=== PATIENT | female | born 1980 | race Hispanic/Latino ===

== ENCOUNTER 2024-04-17 17:19 | Day surgery (SDC) | payer SELFPAY ==
[2024-04-17 18:57] VITALS: BMI 29.2
== END 2024-04-17 19:15 | disposition home or self-care (01) ==
LOC: CSHLD/OP 17:19
PROVIDERS: ATTEND Family Medicine
DX: Z36.89 Encounter for other specified antenatal screening (principal); O36.63X0 Maternal care for excessive fetal growth, third trimester, not applicable or unspecified; O40.3XX0 Polyhydramnios, third trimester, not applicable or unspecified; O99.891 Other specified diseases and conditions complicating pregnancy; N13.30 Unspecified hydronephrosis; R87.810 Cervical high risk human papillomavirus (HPV) DNA test positive; O99.353 Diseases of the nervous system complicating pregnancy, third trimester; G56.00 Carpal tunnel syndrome, unspecified upper limb; Z3A.32 32 weeks gestation of pregnancy
CPT/HCPCS: 59025; 99282